=== PATIENT | female | born 1980 | race Caucasian/White ===

== ENCOUNTER → 2016-08-08 07:36 | Outpatient (CLI) | payer BC ==
[~2016-08-08 07:36] MED LIST: DESERYL100 MG PO; DYAZIDE 37.5/251 CAP PO; EFFEXOR XR150 MG; HYDROCODON-ACE1 EAC7 PO; PROTONIX40 MG PO; REMERON15 MG PO; SINGULAIR10 MG; TOPROL XL50 MG
[2016-10-05 12:23] VITALS: BMI 44.6
== END | disposition home or self-care (01) ==
LOC: D.RT 07:36
DX: R06.00 Dyspnea, unspecified (principal)

== ENCOUNTER → 2016-08-29 08:33 | Outpatient (CLI) | payer BC ==
[2016-10-05 12:23] VITALS: BMI 44.6
== END | disposition home or self-care (01) ==
LOC: D.RAD 08:33
DX: G47.36 Sleep related hypoventilation in conditions classified elsewhere (principal); R06.83 Snoring; R06.00 Dyspnea, unspecified; E66.01 Morbid (severe) obesity due to excess calories

== ENCOUNTER 2016-09-12 07:15 | Day surgery (SDC) | payer BC ==
[~2016-09-12] VITALS: Ht 167.6 cm; Wt 118.2 kg
[2016-09-12] MEDS ORDERED: DYAZIDE 37.5/251 CAP PO (07:45)
[2016-09-12] MEDS ORDERED: TOPROL XL50 MG (07:45)
[2016-09-12] MEDS ORDERED: REMERON15 MG PO (07:46)
[2016-09-12] MEDS ORDERED: EFFEXOR XR150 MG (07:46)
[2016-09-12] MEDS ORDERED: SINGULAIR10 MG (07:54)
[2016-09-12] MEDS ORDERED: DESERYL100 MG PO (07:55)
[2016-09-12 08:06] VITALS: Ht 167.6 cm; Wt 118.2 kg
[2016-09-12 08:26] LABS: BASOPHILS 0.2 % (0.0-2.0); EOSINOPHILS 0.8 % (0-7); HEMATOCRIT 41.1 % (36.0-48.0); IMMATURE GRANULOCYTES 0.4 % (0-5); LYMPHOCYTES 32.4 % (15-50); MCH 32.6 pg (26.0-34.0); MCHC 34.1 g/dL (31.0-37.0); MCV 95.8 fL (80.0-100.0); MEAN PLATELET VOLUME 10.1 fL (7.4-10.4); MONOCYTES 7.5 % (2-11); NEUTROPHILS 58.7 % (40-80); PLATELET COUNT 285 10x3/uL (130-400); RBC 4.29 10x6/uL (4.00-5.40); RDW 12.5 % (11.5-14.5)
[2016-09-12 08:35] LABS: CALC OSMOLALITY 274 mosm/kg (275-300); CALCIUM 9.3 mg/dL (8.5-10.1); CARBON DIOXIDE 27.2 mmol/L (21.0-32.0); CHLORIDE - SERUM 102 mmol/L (98-107); CREATININE - SERUM 0.7 mg/dL (0.6-1.3); GLUCOSE 93 mg/dL (74-106); POTASSIUM - SERUM 4.2 mmol/L (3.5-5.1); SODIUM 138 mmol/L (136-145); UREA NITROGEN 10 mg/dL (7-18); eGFR NON AFRICAN AMERICAN > 90 mL/min (90-120)
[2016-09-12] MEDS ORDERED: PROTONIX40 MG PO (09:24)
--- NOTE | 2016-09-12 12:44 | NUR ---
1055 DRESSED. AWAKE & ALERT. GIVEN DISCHARGE INSTRUCTIONS, RTC APPT., RX: PROTONIX, MED REC., & D/C INSTRUCTIONS. PT VOICED UNDERSTANDING. TO PRIVATE CAR PER WHEELCHAIR BY VOLUNTEER. HOME WITH EX-. Oswald PAYTON R.N.
--- NOTE | 2016-09-13 08:39 | OP ---
PATIENT NAME: DAVID JUNIOR MEDICAL RECORD: [id number] :78 LOCATION:[facility] ADMISSION DATE: SURGEON: UCHE ESTRADA MD DATE OF OPERATION: 09/12/2016 PREOPERATIVE DIAGNOSES: Morbid obesity, nicotine dependence, hypertension, urinary incontinence. POSTOPERATIVE DIAGNOSES: Gastritis, hiatal hernia, reflux esophagitis. PROCEDURE PERFORMED: Esophagogastroduodenoscopy. ANESTHESIA: Total intravenous anesthesia. SURGEON: Uche Estrada MD SPECIMENS: 1. Duodenal biopsy. 2. Antral biopsy. 3. Gastric biopsy. 4. GE junction biopsy. Case was contaminated. COMPLICATIONS: None. OPERATIVE COURSE: After consent was obtained, the patient was taken to the endoscopy suite at which time, total intravenous anesthesia was given. A timeout was taken to confirm the correct patient and procedure. A bite block was placed. [place]riCaine Circle was administered. The patient was placed in left lateral decubitus position. The endoscope was inserted through the oropharynx. It was passed posteriorly to the epiglottis under direct endoscopic vision and CO2 insufflation, the scope was advanced along the esophagus and through the GE junction. The stomach was insufflated. There was moderate diffuse gastritis noted. The scope was advanced to the pylorus. The pylorus was intubated. The duodenum appeared within normal limits. Multiple duodenal biopsies were taken. The scope was then withdrawn to the stomach into the prepyloric region. Multiple antral biopsies were then taken. The areas of gastritis were biopsied. Next, the scope was then retroflexed, a small hiatal hernia was noted. The stomach was desufflated. The scope was then withdrawn to the GE junction, at which time multiple GE junction biopsies were taken. There was an irregular Z line and a small hiatal hernia noted. At this time, the remaining portions of the esophagus were examined upon withdrawal of the scope, no abnormalities identified. At the end of the case, all needle counts were correct. No complications occurred. The patient was transferred to recovery room in satisfactory condition. TRANSINT:[id number] Voice Confirmation ID: [id number] DOCUMENT ID: [id number] OPERATIVE REPORT [id number] DAVID JUNIOR UCHE ESTRADA MD at 0839 CC: [id number] DICTATION DATE: 09/12/16921 PHYSICIAN PRIMARY C[facility] SPORTS MEDICINE: 09/12/1650 DEP SD 09/12/16 [facility] [address] [place] [address]
== END 2016-09-12 10:55 | disposition home or self-care (01) ==
LOC: D.OPS 07:15
PROVIDERS: Anesthesiology
DX: K29.50 Unspecified chronic gastritis without bleeding (principal); K44.9 Diaphragmatic hernia without obstruction or gangrene; K21.0 Gastro-esophageal reflux disease with esophagitis; E66.01 Morbid (severe) obesity due to excess calories; Z68.41 Body mass index [BMI] 40.0-44.9, adult; F17.200 Nicotine dependence, unspecified, uncomplicated; I10 Essential (primary) hypertension; R32 Unspecified urinary incontinence

== ENCOUNTER 2016-10-05 05:21 | Inpatient (IN) | payer SELFPAY ==
[2016-10-04 12:28] LABS: BASOPHILS 0.3 % (0.0-2.0); EOSINOPHILS 0.6 % (0-7); HEMATOCRIT 39.4 % (36.0-48.0); HEMOGLOBIN 13.3 g/dL (12-16); IMMATURE GRANULOCYTES 0.4 % (0-5); LYMPHOCYTES 30.6 % (15-50); MCH 32.2 pg (26.0-34.0); MCHC 33.8 g/dL (31.0-37.0); MCV 95.4 fL (80.0-100.0); MEAN PLATELET VOLUME 10.7 fL (7.4-10.4); MONOCYTES 8.1 % (2-11); PLATELET COUNT 299 10x3/uL (130-400); RBC 4.13 10x6/uL (4.00-5.40); RDW 12.6 % (11.5-14.5); WBC 14.6 10x3/uL (4.8-10.8)
[~2016-10-05] VITALS: Ht 167.6 cm; Wt 125.5 kg
[~2016-10-05 05:21] MED LIST changes: -HYDROCODON-ACE1 EAC7 PO
[2016-10-05 06:58] VITALS: BP 112/71; BMI 45.1
--- NOTE | 2016-10-05 07:15 | NUR ---
DR ESTRADA CALLED TO INFORM OF PTS WBC OF 14.6. NO NEW ORDERS RECEIVED
[2016-10-05 10:48] VITALS: BP 138/90
--- NOTE | 2016-10-05 11:00 | NUR ---
A 36 YEAR ADMITTED TO ROOM 2211 VIA BED FROM [facility] SITES TIMES [address] AND DRAINING YELLOW URINE AT PRESENT IV IN [facility] SITE CLEAN AND DRY PLAN OFCARE GONE OVER DELL PT AND FAMILY DEMONSTRATES UNDERSTANDING AT PRESENT.DISHWASHER SET UP PT INSTRUCTED ON USAGE AT PRESENT DEMONSTRATES UNDERSTANDING.
[2016-10-05 12:23] VITALS: BP 138/40; Ht 167.6 cm; Wt 125.5 kg
--- NOTE | 2016-10-05 12:55 | OP ---
PATIENT NAME: DAVID JUNIOR MEDICAL RECORD: [id number] :78 LOCATION:[id number] ADMISSION DATE:10/05/16 SURGEON: UCHE ESTRADA MD DATE OF OPERATION: 10/05/2016 SURGEON: Uche Estrada MD PREOPERATIVE DIAGNOSES: 1. Morbid obesity. 2. Morbid obesity with alveolar hypoventilation. 3. Gastroesophageal reflux disease. 4. Urinary incontinence. POSTOPERATIVE DIAGNOSES: 1. Morbid obesity. 2. Morbid obesity with alveolar hypoventilation. 3. Gastroesophageal reflux disease. 4. Urinary incontinence. PROCEDURE PERFORMED: Laparoscopic vertical sleeve gastrectomy. ANESTHESIA: General. COMPLICATIONS: None. SPECIMENS: Partial gastrectomy. ESTIMATED BLOOD LOSS: 30 cc. COMPLICATIONS: None. Case is contaminated. OPERATIVE COURSE: After consent was obtained, the patient was taken to the operating room and placed in supine position on the operating table. Next, general anesthesia was given via endotracheal intubation after a timeout was performed that confirmed the correct patient and procedure. The abdomen was then prepped and draped in typical sterile fashion. Local anesthetic was injected just above the umbilicus. A stab incision was made with 11-blade scalpel. Using a 10-mm bladeless optical trocar, the abdomen was entered under laparoscopic vision. Adequate pneumoperitoneum was achieved. The abdominal cavity was inspected. No evidence of bowel injury. No evidence of bleeding. The patient was then placed in the steep reverse Trendelenburg position. The Chani liver retractor was placed in the subxiphoid position, elevating the ____ side of the liver and exposing the gastroesophageal junction. At this time, all remaining trocars were placed after the administration of local anesthetic, a 12-mm trocar and 5-mm trocar in the right lateral quadrants, two 5-mm trocars in the left lateral quadrant. The pylorus was identified. Starting at approximately 6-8 cm proximal to the pylorus, the greater curvature was mobilized. The short gastrics were taken with Harmonic scalpel along the length of the greater curvature all the way to the left crura. The left crura was skeletonized. The gastrohepatic ligament was then opened with the Harmonic scalpel. The right crura was skeletonized. There was no hiatal hernia defect for repair. At this time, the 40-Kazakh ViSiGi device was passed orally into the stomach. The tip of the tube was placed just beyond the pylorus and was OPERATIVE REPORT [id number] DAVID JUNIOR placed to suction. The sleeve gastrectomy was then performed using a linear cutting powered stapler, 5 gold loads were used and 1 green load shamar were fired along the length of the 40-Kazakh bougie. Next, the staple line was imbricated using 3-0 Stratafix suture. Once this is complete, the ViSiGi device was taken off of suction. It was pulled back 3-4 cm and laparoscopic bowel clamp was placed across the duodenum. The upper abdomen was filled with water, the bougie was inflated. The stomach was pressurized. There was no evidence of leak. At this time, the stomach was placed back to suction. Once the stomach was decompressed, the 40-Kazakh bougie device was removed. All remaining irrigation was suctioned from the abdomen. The entire abdominal cavity was inspected. There no evidence of bowel injury. No evidence of bleeding. At this time, the Chani liver retractor was removed. The partial gastrectomy specimen was removed through the 12-mm trocar site and sent for permanent pathology. The 10-mm ____ trocar sites were then closed with a 0 Vicryl suture using a Yogesh-Tez suture passer under direct laparoscopic vision. Again at this time, the abdominal cavity was inspected. There was no evidence of bowel injury. No evidence of bleeding. All remaining instruments were removed. The abdomen was desufflated. The remaining trocars were removed. The skin was closed with 4-0 Monocryl, Mastisol and Steri-Strips. At the end of the case, all needle and instrument counts were correct. No complications occurred. The patient was transferred to the PACU in stable condition. TRANSINT:[id number] Voice Confirmation ID: [id number] DOCUMENT ID: [id number] UCHE ESTRADA MD at 1255 CC: [id number] DICTATION DATE: 10/05/16931 CORE CLEANER: 10/05/16 1221 ADM IN [id number] [place] [address]
--- NOTE | 2016-10-05 14:05 | NUR ---
UP AMB IN HALLWAY WITH FAMILY AT PRESENT BRIELLE WELL AT PRESENT.RIVERA CATH REMOVED AT BEDSIDE AT PRESENT.
--- NOTE | 2016-10-05 14:30 | NUR ---
RIVERA CATH REMOVED BRIELLE WELL AT PRESENT 250CC IN BAG
--- NOTE | 2016-10-05 16:13 | NUR ---
UP AMB IN HALLWAY WITH BRIELLE WELL DENIES ANY NEEDS AT THIS TIME.IU CONT AT 150CC/HR/IVAC.
--- NOTE | 2016-10-05 16:47 | NUR ---
RESTING WITHOUT DISTRESS.CALL LIGHT IN REACH
--- NOTE | 2016-10-05 17:28 | NUR ---
STATUS REMAINS UNCHGD AT PRESENT .
--- NOTE | 2016-10-05 19:00 | NUR ---
BEDSIDE REPORT RECEIVED AND CARE OF PT ASSUMED. PT AMBULATING IN THE HALLS AT THIS TIME. IV IN RIGHT HAND WITH LR INFUSING AT 150 ML / HR. WILL MONITOR VICKIE FOR NEEDS.
--- NOTE | 2016-10-05 19:14 | NUR ---
HASNT VOIDED SINCE RIVERA REMOVED.
--- NOTE | 2016-10-05 20:30 | NUR ---
PT VOIDED 300 ML YELLOW URINE.
[2016-10-05 20:48] VITALS: BP 153/88
--- NOTE | 2016-10-05 21:52 | NUR ---
HS MEDICATIONS GIVEN. WILL CONTINUE TO MONITOR FOR NEEDS.
--- NOTE | 2016-10-05 23:48 | NUR ---
PT AMBULATING IN THE HALLS. WILL CONTINUE TO MONITOR FOR NEEDS.
[2016-10-06 00:18] VITALS: BP 146/60
--- NOTE | 2016-10-06 02:33 | NUR ---
PT RESTING IN SEMI ROYAL'S POSITION WITH EYES CLOSED AND UNLABORED BREATING. SIDE RAILS UP X2 FOR SAFETY. SISTER IS AT BEDSIDE.
[2016-10-06 04:27] VITALS: BP 146/77
--- NOTE | 2016-10-06 07:20 | NUR ---
PATIENT RECEIVED UP AMBULATING IN ROOM. NO SIGNS OF DISTRESS NOTED. GUEST AT BEDSIDE. DENIES NEEDS.
[2016-10-06] MEDS ORDERED: HYDROCODON-ACE1 EAC7 PO (07:21)
[2016-10-06 08:07] VITALS: BP 139/77
--- NOTE | 2016-10-06 09:09 | NUR ---
ALERT IN BED WITH FAMILY PRESENT. SCHEDULED MEDICATION ADMINISTERED. ANTICIPATING D/C HOME. DENIES NEEDS. SIDE RAILS UP X2. BED IN LOW POSITION. CALL LIGHT IN REACH.
--- NOTE | 2016-10-06 11:35 | NUR ---
IV D/C WITH CATH TIP INTACT. SITE COVERED WITH GAUZE AND BANDAID.
--- NOTE | 2016-10-06 11:45 | NUR ---
D/C TEACHING AND PRESCRIPTION FOR NORCO PROVIDED. STATES UNDERSTANDING. DENIES QUESTIONS. AMBULATED OFF UNIT WITH FAMILY
--- NOTE | 2016-10-25 08:07 | DS ---
PATIENT:DAVID JUNIOR :78 MEDICAL RECORD: [id number] DISCHARGE SUMMARY ADMISSION DATE: 10/05/16 DISCHARGE DATE: 10/06/16 DATE OF ADMISSION: 10/05/2016 DATE OF DISCHARGE: 10/06/2016 DISCHARGE PHYSICIAN: Dr. Uche Estrada. ADMITTING DIAGNOSES: Morbid obesity, gastroesophageal reflux disease and urinary incontinence. POSTOPERATIVE DIAGNOSES: Morbid obesity, gastroesophageal reflux disease and urinary incontinence. PROCEDURES PERFORMED: Laparoscopic vertical sleeve gastrectomy. HOSPITAL COURSE: The patient was admitted for an elective vertical sleeve gastrectomy, which she tolerated well. Postoperative, she was transferred to the floor and started on a bariatric pathway. She was started on phase 1 clear liquid diet. On postoperative day 1, she was taken for a Gastrografin swallow, which was read as within normal limits. She was advanced to bariatric phase 2 diet. At the time of discharge, she was ambulating independently. She was tolerating bariatric phase 2 diet without difficulty. Her pain was well controlled on oral pain medicines. DISCHARGE CONDITION: Stable. DISCHARGE DIET: Bariatric phase 2 liquid diet for 2 weeks. FOLLOWUP: With Dr. Estrada in 2 weeks. DISCHARGE MEDICATIONS: Please see electronic medical record for full list of medications. WOUND CARE: The patient may shower, soap and water to the wound daily. No baths for 2 weeks. TRANSINT:[id number] Voice Confirmation ID: [id number] DOCUMENT ID: [id number] UCHE ESTRADA MD at 0807 CC: [id number] DICTATION DATE: 10/24/16 1103 VOLUNTEER FIREFIGHTER: 10/25/16 0212 DIS IN 10/06/16 [id number] [place] [address]
== END 2016-10-06 11:45 | disposition home or self-care (01) | DRG 620 ==
LOC: D.MS 05:21 → D.SDCHOLD 05:21 → D.MS 10:45
PROVIDERS: Anesthesiology; ADMIT Surgery
PROC: 0DB64Z3 Excision of Stomach, Percutaneous Endoscopic Approach, Vertical (ICD-10-PCS; principal; 2016-10-05 08:00)
DX: E66.01 Morbid (severe) obesity due to excess calories (principal); E66.2 Morbid (severe) obesity with alveolar hypoventilation; Z68.41 Body mass index [BMI] 40.0-44.9, adult; K21.9 Gastro-esophageal reflux disease without esophagitis; R32 Unspecified urinary incontinence

== ENCOUNTER → 2017-02-02 12:00 | Outpatient (CLI) | payer BC ==
[2016-10-05 12:23] VITALS: BMI 44.6
[~2017-02-02 12:00] MED LIST changes: +HYDROCODON-ACE1 EAC7 PO
[2017-02-02 12:23] LABS: BASOPHILS 0.2 % (0-2); EOSINOPHILS 0.9 % (0-7); HEMATOCRIT 41.4 % (36.0-48.0); HEMOGLOBIN 13.7 g/dL (12-16); IMMATURE GRANULOCYTES 0.2 % (0-5); LYMPHOCYTES 36.5 % (15-50); MCH 31.1 pg (26.0-34.0); MCHC 33.1 g/dL (31.0-37.0); MCV 93.9 fL (80.0-100.0); MEAN PLATELET VOLUME 10.5 fL (7.4-10.4); MONOCYTES 6.8 % (2-11); NEUTROPHILS 55.4 % (40-80); RBC 4.41 10x6/uL (4.00-5.40); RDW 13.2 % (11.5-14.5); WBC 12.9 10x3/uL (4.8-10.8)
[2017-02-02 12:35] LABS: PLATELET COUNT 237 10x3/uL (130-400)
[2017-02-02 12:41] LABS: CREATININE - SERUM 0.8 mg/dL (0.6-1.3)
== END | disposition home or self-care (01) ==
LOC: D.LAB 12:00
PROVIDERS: Surgery
DX: Z00.00 Encounter for general adult medical examination without abnormal findings (principal)

== ENCOUNTER → 2017-05-26 11:20 | Outpatient (CLI) | payer BC ==
[2016-10-05 12:23] VITALS: BMI 44.6
[2017-05-26 12:00] LABS: BASOPHILS 0.2 % (0-2); EOSINOPHILS 0.9 % (0-7); HEMATOCRIT 43.9 % (36.0-48.0); HEMOGLOBIN 14.9 g/dL (12-16); IMMATURE GRANULOCYTES 0.3 % (0-5); LYMPHOCYTES 38.3 % (15-50); MCHC 33.9 g/dL (31.0-37.0); MCV 94.4 fL (80.0-100.0); MEAN PLATELET VOLUME 10.8 fL (7.4-10.4); MONOCYTES 5.8 % (2-11); NEUTROPHILS 54.5 % (40-80); PLATELET COUNT 284 10x3/uL (130-400); RBC 4.65 10x6/uL (4.00-5.40); RDW 12.9 % (11.5-14.5); WBC 11.4 10x3/uL (4.8-10.8)
[2017-05-26 12:28] LABS: ALBUMIN 3.9 g/dL (3.4-5.0); ALKALINE PHOSPHATASE 76 U/L (46-116); ALT (SGPT) 21 U/L (10-68); BILIRUBIN - TOTAL 0.33 mg/dL (0.2-1.3); CALC OSMOLALITY 275 mosm/kg (275-300); CALCIUM 8.8 mg/dL (8.5-10.1); CARBON DIOXIDE 25.4 mmol/L (21.0-32.0); CHLORIDE - SERUM 105 mmol/L (98-107); CHOL - HDL RATIO 5.9 ratio (2.3-4.1); CHOLESTEROL, TOTAL 202 mg/dL (0-200); CREATININE - SERUM 0.7 mg/dL (0.6-1.3); GLUCOSE 85 mg/dL (74-106); HDL CHOLESTEROL 34 mg/dL (32-96); LDL CHOLESTEROL 151 mg/dL (0-100); LDL-HDL RATIO 4.4 ratio (1.5-3.5); POTASSIUM - SERUM 4.3 mmol/L (3.5-5.1); PROTEIN - SERUM 7.5 g/dL (6.4-8.2); SODIUM 139 mmol/L (136-145); TRIGLYCERIDE 85 mg/dL (30-200); UREA NITROGEN 9 mg/dL (7-18); eGFR NON AFRICAN AMERICAN > 90 mL/min (90-120)
[2017-05-28 05:40] LABS: VITAMIN D 25 HYDROXY 42.2 ng/mL (30.0-100.0)
== END | disposition home or self-care (01) ==
LOC: D.LAB 10:45
PROVIDERS: Surgery
DX: Z00.00 Encounter for general adult medical examination without abnormal findings (principal); E78.5 Hyperlipidemia, unspecified; K21.9 Gastro-esophageal reflux disease without esophagitis

== ENCOUNTER → 2017-08-22 10:28 | Outpatient (CLI) | payer BC ==
[2016-10-05 12:23] VITALS: BMI 44.6
[2017-08-22 11:17] LABS: ALBUMIN 3.8 g/dL (3.4-5.0); BILIRUBIN - DIRECT 0.09 mg/dL (0.00-0.30); BILIRUBIN - INDIRECT 0.31 mg/dL (0.00-1.00); BILIRUBIN - TOTAL 0.4 mg/dL (0.2-1.3); CREATININE - SERUM 0.7 mg/dL (0.6-1.3); PROTEIN - SERUM 7.1 g/dL (6.4-8.2)
[2017-08-22 11:30] LABS: HEMATOCRIT 37.9 % (36.0-48.0); HEMOGLOBIN 12.8 g/dL (12-16); MCH 30.8 pg (26.0-34.0); MCHC 33.8 g/dL (31.0-37.0); MCV 91.3 fL (80.0-100.0); MEAN PLATELET VOLUME 10.2 fL (7.4-10.4); PLATELET COUNT 238 10x3/uL (130-400); RBC 4.15 10x6/uL (4.00-5.40); RDW 12.5 % (11.5-14.5); WBC 8.9 10x3/uL (4.8-10.8)
== END | disposition home or self-care (01) ==
LOC: D.LAB 10:28
PROVIDERS: Surgery
DX: R10.11 Right upper quadrant pain (principal); K85.90 Acute pancreatitis without necrosis or infection, unspecified

== ENCOUNTER → 2020-11-19 13:13 | Outpatient (CLI) | payer BC ==
[2016-10-05 12:23] VITALS: BMI 44.6
== END | disposition home or self-care (01) ==
LOC: D.CT 13:13
PROVIDERS: ATTEND Family Medicine
DX: R10.31 Right lower quadrant pain (principal)

== ENCOUNTER → 2020-12-02 07:37 | Outpatient (CLI) | payer BC ==
[2016-10-05 12:23] VITALS: BMI 44.6
== END | disposition home or self-care (01) ==
LOC: D.MRI 07:37
PROVIDERS: ATTEND Family Medicine
DX: K76.9 Liver disease, unspecified (principal)